=== PATIENT | female | born 1950 | race African-American/Black ===

== ENCOUNTER 2017-08-27 17:11 | Inpatient (IN) | payer MEDICARE, MEDICAID ==
[~2017-08-27] VITALS: Ht 162.6 cm; Wt 105.7 kg
[2017-08-27] VITALS (16 sets, daily range): BP systolic 53–154; BP diastolic 24–80
[2017-08-27 17:52] LABS: ABG BASE EXCESS -2.4; ABG PCO2 30.9 mmHg (35.0-45.0)
[2017-08-27] MEDS ORDERED: Lidocaine 1% MPF 10mg/ml 5ml ONE (17:56)
--- NOTE | 2017-08-27 18:33 | Emergency Room Report ---
History of Present Illness General Chief Complaint: Altered Level of Consciousness Source: Patient, Medical Record Present Illness HPI Patient presents with complaints of altered mental status Paramedics report the patient had low blood glucose at the scene and was given glucose Patient here is nonverbal does grimace in response to painful stimuli otherwise appears uncomfortable Short of breath Patient has history of liver disease and weakness History of present illness is significantly limited given the patient's presentation and mentation Allergies: Coded Allergies: No Known Allergies (Unverified , 08/27/17) Patient History Limited by: medical condition Past Medical History: see triage record Pertinent Family History: unable to obtain Reviewed Nursing Documentation: PMH: Agreed, PSxH: Agreed Review of Systems All Other Systems: limited - Other than the ones mentioned in the history of present illness all others are reviewed however they do stay limited due to the patient's mental status Physical Exam Vital Signs Date Time Temp Pulse Resp B/P (MAP) Pulse Ox O2 Delivery O2 Flow Rate FiO2 08/27/17 17:02 96.1 82 20 126/80 Non-Rebreather 08/27/17 17:11 100 15.0 Sp02 EP Interpretation: reviewed, normal General Appearance: moderate distress - appears confused Head: normocephalic, atraumatic Eyes: bilateral eye PERRL, bilateral eye scleral icterus ENT: dry mucus membranes Neck: supple, thyroid normal Respiratory: crackles - diffusely, other - tachypneic Cardiovascular #1: regular rate, rhythm Gastrointestinal: non tender, soft Musculoskeletal: other - Patient moves upper extremity towards physical stimuli otherwise does not follow commands Neurologic: responsive - to physical stimuli Skin: jaundice Lymphatic: no adenopathy Procedures Critical Care Time Critical Care Time 50 minutes for multiple re\re evaluations initial critical status Not including any procedural time Central Line Central Line : Consent: Emergent Central Line Lumen: triple Maximal Sterile Barrier Tech: yes cap, yes mask, yes sterile gown, yes sterile gloves, yes large sterile sheet, yes hand hygiene, yes chlorhexidine prep Central Line Postion: femoral (R) Anesthesia: Lidocaine cc's of anesthesia: 5 Complications: none Central Line Post Position: sutured Attempts: Other - 2 Patient Tolerated: Well Complications: None Intubation Intubation : Consent: Emergent Intubation Method: orotracheal Tube Size (cm): 7.5 Medications: Succinylcholine Breath Sounds after Intubation: equal Intubation Complications: no complications Post Intubation Xray: Yes Attempts: One Patient Tolerated: Well Complications: None Medical Decision Making Diagnostic Impression: Primary Impression: Respiratory failure Additional Impressions: Hepatic encephalopathy Septic shock ER Course Patient's presentation is extremely concerning Given the hypotension and the confusion Severe sepsis and septic shock considered Patient's lactic acid is also 6 patient has central line placed Requires airway intubation given the abnormal respirations Patient requires pressors after IV boluses antibiotics initiated Patient's ammonia level is elevated as well in line with her hepatic encephalopathy and lactulose has been ordered Patient is an extremely critical condition admitted to ICU Labs Test 08/27/17 17:16 08/27/17 18:20 Prothrombin Time 51.7 SEC (9.30-11.50) Prothromb Time International Ratio 4.9 (0.9-1.1) Activated Partial Thromboplast Time 61 SEC (23-33) Arterial Blood pH 7.440 (7.350-7.450) Arterial Blood Partial Pressure CO2 30.9 mmHg (35.0-45.0) Arterial Blood Partial Pressure O2 266.1 mmHg (75.0-100.0) Arterial Blood HCO3 20.8 mmol/L (22.0-26.0) Arterial Blood Oxygen Saturation 99.4 % (92.0-98.0) Arterial Blood Base Excess -2.4 [place] Test N/a White Blood Count 15.2 K/UL (4.8-10.8) Red Blood Count 2.66 M/UL (4.20-5.40) Hemoglobin 9.9 G/DL (12.0-16.0) Hematocrit 31.3 % (37.0-47.0) Mean Corpuscular Volume 118 FL (80-99) Mean Corpuscular Hemoglobin 37.2 PG (27.0-31.0) Mean Corpuscular Hemoglobin Concent 31.5 G/DL (32.0-36.0) Red Cell Distribution Width 15.7 % (11.6-14.8) Platelet Count 118 K/UL (150-450) Mean Platelet Volume 8.5 FL (6.5-10.1) Neutrophils (%) (Auto) % (45.0-75.0) Lymphocytes (%) (Auto) % (20.0-45.0) Monocytes (%) (Auto) % (1.0-10.0) Eosinophils (%) (Auto) % (0.0-3.0) Basophils (%) (Auto) % (0.0-2.0) Differential Total Cells Counted 100 Neutrophils % (Manual) 85 % (45-75) Lymphocytes % (Manual) 12 % (20-45) Monocytes % (Manual) 2 % (1-10) Eosinophils % (Manual) 0 % (0-3) Basophils % (Manual) 0 % (0-2) Band Neutrophils 1 % (0-8) Platelet Estimate Decreased Platelet Morphology Normal Anisocytosis 1+ Macrocytosis 1+ Sodium Level 143 MMOL/L (136-145) Potassium Level 3.9 MMOL/L (3.5-5.1) Chloride Level 105 MMOL/L (98-107) Carbon Dioxide Level 27 MMOL/L (21-32) Anion Gap 11 mmol/L (5-15) Blood Urea Nitrogen 11 mg/dL (7-18) Creatinine 2.2 MG/DL (0.55-1.30) Estimat Glomerular Filtration Rate 27.1 mL/min (>60) Glucose Level 94 MG/DL (74-106) Lactic Acid Level 6.00 mmol/L (0.66-2.22) Calcium Level 8.2 MG/DL (8.5-10.1) Total Bilirubin 2.9 MG/DL (0.2-1.0) Direct Bilirubin 2.5 MG/DL (0.0-0.3) Aspartate Amino Transf (AST/SGOT) 2389 U/L (15-37) Alanine Aminotransferase (ALT/SGPT) 775 U/L (12-78) Alkaline Phosphatase 219 U/L (46-116) Ammonia 147 umol/L (11.2-31.7) Total Creatine Kinase 44 U/L (26-308) Creatine Kinase MB 2.6 NG/ML (0.0-3.6) Creatine Kinase MB Relative Index 5.9 Troponin I 0.045 ng/mL (0.000-0.056) Pro-B-Type Natriuretic Peptide 2042 pg/mL (0-125) Total Protein 4.5 G/DL (6.4-8.2) Albumin 1.1 G/DL (3.4-5.0) Globulin 3.4 g/dL Albumin/Globulin Ratio 0.3 (1.0-2.7) Lipase 30 U/L (73-393) Rhythm Strip Diag. Results EP Interpretation: yes Rate: 77 Rhythm: NSR, no PVC's, no ectopy Chest X-Ray Diagnostic Results Chest X-Ray Diagnostic Results #1: Chest X-Ray Ordered: Yes # of Views/Limited/Complete: 1 View Indication: Chest Pain EP Interpretation: Yes Interpretation: no consolidation, no effusion, no pneumothorax Impression: No acute disease Electronically Signed by: Omar Queen DO Chest X-Ray Diagnostic Results #2: Chest X-Ray Ordered: Yes Indication: Chest Pain EP Interpretation: Yes Interpretation: no consolidation, no effusion, no pneumothorax, other - ET tube appropriately placed, mild increased congestion perihilar Impression: Other - ET tube good location Electronically Signed by: Omar Queen DO Last Vital Signs Date Time Temp Pulse Resp B/P (MAP) Pulse Ox O2 Delivery O2 Flow Rate FiO2 08/27/17 17:11 96.1 95 20 126/80 100 Non-Rebreather 15.0 Status: improved Disposition: ADMITTED INPATIENT Condition: Critical Referrals: CARLI TINOCO (PCP) OMAR QUEEN D.O. Aug 27, 2017 18:33
[2017-08-27 18:47] LABS: MEAN CORPUSCULAR HEMOGLOBIN 37.2 PG (27.0-31.0); MEAN CORPUSCULAR HGB CONC 31.5 G/DL (32.0-36.0); MEAN CORPUSCULAR VOLUME 118 FL (80-99); MEAN PLATELET VOLUME 8.5 FL (6.5-10.1); PLATELET COUNT 118 K/UL (150-450); RED BLOOD COUNT 2.66 M/UL (4.20-5.40); RED CELL DISTRIBUTION WIDTH 15.7 % (11.6-14.8); WHITE BLOOD COUNT 15.2 K/UL (4.8-10.8)
[2017-08-27 19:13] LABS: ANION GAP 11 mmol/L (5-15); CALCIUM 8.2 MG/DL (8.5-10.1); CARBON DIOXIDE 27 MMOL/L (21-32); CHLORIDE 105 MMOL/L (98-107); CREATININE 2.2 MG/DL (0.55-1.30); GLOMERULAR FILTRATION RATE 27.1 mL/min (>60); POTASSIUM 3.9 MMOL/L (3.5-5.1); SODIUM 143 MMOL/L (136-145)
[2017-08-27 19:23] LABS: ALANINE AMINOTRANSFERASE 775 U/L (12-78); ALBUMIN/GLOBULIN RATIO 0.3 (1.0-2.7); ASPARTATE AMINO TRANSFERASE 2389 U/L (15-37); CKMB 2.6 NG/ML (0.0-3.6); LIPASE 30 U/L (73-393); TOTAL PROTEIN 4.5 G/DL (6.4-8.2)
[2017-08-27 19:28] LABS: REFLEX LACTIC ACID YES OR NO YES
[2017-08-27 19:29] LABS: BILIRUBIN,DIRECT 2.5 MG/DL (0.0-0.3)
[2017-08-27 19:31] LABS: ANISOCYTOSIS 1+; BAND NEUTROPHILS % (MANUAL) 1 % (0-8); LYMPHOCYTES % (MANUAL) 12 % (20-45); NEUTROPHILS % (MANUAL) 85 % (45-75); TOTAL CELLS COUNTED 100
[2017-08-27 19:32] LABS: BASOPHILS % (MANUAL) 0 % (0-2); EOSINOPHILS % (MANUAL) 0 % (0-3); MACROCYTES 1+; PLATELET ESTIMATE DECREASED; PLATELET MORPHOLOGY NORMAL
[2017-08-27] MEDS ORDERED: DOPamine 400mg/250ml 250 ML IV SCH (19:45)
[2017-08-27] MEDS ORDERED: Succinylcholine 20mg/ml 10ml vial IV ONE (20:00)
[2017-08-27] MEDS ORDERED: NKM (20:12)
[2017-08-27] MEDS ORDERED: DOCUSATE SODIU100 MG ORAL (20:45)
[2017-08-27] MEDS ORDERED: VITAMIN D250000 UNI1 ORAL (20:45)
[2017-08-27] MEDS ORDERED: FOLIC ACID1 MG ORAL (20:45)
[2017-08-27] MEDS ORDERED: VITAMIN B-1100 MG ORAL (20:45)
[2017-08-27] MEDS ORDERED: MILK OF MA400 MG/51 ORAL (20:49)
[2017-08-27] MEDS ORDERED: ACETAMINOPHEN325 M1 ORAL (20:49)
[2017-08-27] MEDS ORDERED: PANTOPRAZOLE SO40 MG ORAL (20:49)
[2017-08-27] MEDS ORDERED: MIDODRINE HCL5 MG ORAL (20:51)
[2017-08-27 20:54] LABS: PROTHROMBIN TIME 51.7 SEC (9.30-11.50)
[2017-08-27 20:55] LABS: INR 4.9 (0.9-1.1)
[2017-08-27] MEDS ORDERED: Lactulose 200 GM in NS Irrig 1000ml 700 ML RECTAL ONE (21:00)
[2017-08-27] MEDS ORDERED: Zosyn 3.375gm/50ml Premix 50 ML IVPB ONE (22:00)
[2017-08-27 22:03] LABS: ABG BASE EXCESS -5; ABG PCO2 36.7 mmHg (35.0-45.0)
[2017-08-27] MEDS ORDERED: Miralax 17gm pkt ORAL PRN (22:30)
[2017-08-27] MEDS ORDERED: Albuterol/Ipratropium 3ml neb HHN PRN (22:30)
[2017-08-27] MEDS ORDERED: LORazepam Inj 2mg/ml 1ml IV PRN (22:30)
[2017-08-27] MEDS ORDERED: Morphine Sulfate 4mg/ml Inj IVP PRN (22:30)
[2017-08-27] MEDS ORDERED: Vancomycin 1 GM in D5W 275 ML IV SCH (23:45)
[2017-08-28] VITALS (16 sets, daily range): BP systolic 49–187; BP diastolic 21–142
[2017-08-28] MEDS ORDERED: Amikacin 500 MG in NS 110 ML IV ONE ×2
[2017-08-28] MEDS ORDERED: Levophed 4mg/4mL Inj IV ONE ×2 (00:48→04:10)
[2017-08-28] MEDS ORDERED: Vancomycin 1.5 GM/D5W 250ML IVPB SCH (01:00)
[2017-08-28] MEDS ORDERED: Ertapenem (INVanz) 1gm Inj ONE (01:01)
[2017-08-28] MEDS ORDERED: Amikacin 500mg/2mL Inj ONE (01:03)
[2017-08-28] MEDS ORDERED: Ertapenem 1 GM in NS 55 ML IV SCH (02:00)
[2017-08-28 07:18] LABS: ALANINE AMINOTRANSFERASE 617 U/L (12-78); ALBUMIN/GLOBULIN RATIO 0.3 (1.0-2.7); ANION GAP 16 mmol/L (5-15); ASPARTATE AMINO TRANSFERASE 1349 U/L (15-37); BILIRUBIN,DIRECT 2.2 MG/DL (0.0-0.3); CALCIUM 7.5 MG/DL (8.5-10.1); CARBON DIOXIDE 20 MMOL/L (21-32); CHLORIDE 106 MMOL/L (98-107); CREATININE 2.4 MG/DL (0.55-1.30); GLOMERULAR FILTRATION RATE 24.6 mL/min (>60); MEAN CORPUSCULAR HEMOGLOBIN 37.6 PG (27.0-31.0); MEAN CORPUSCULAR HGB CONC 31.4 G/DL (32.0-36.0); MEAN CORPUSCULAR VOLUME 120 FL (80-99); MEAN PLATELET VOLUME 8.8 FL (6.5-10.1); PLATELET COUNT 153 K/UL (150-450); POTASSIUM 3.7 MMOL/L (3.5-5.1); RED BLOOD COUNT 2.95 M/UL (4.20-5.40); RED CELL DISTRIBUTION WIDTH 15.9 % (11.6-14.8); SODIUM 142 MMOL/L (136-145); TOTAL PROTEIN 4.2 G/DL (6.4-8.2)
[2017-08-28] MEDS ORDERED: Lidocaine 1% MPF 10mg/ml 5ml INJ ONE (07:30)
[2017-08-28 07:56] LABS: INR 3.4 (0.9-1.1); PROTHROMBIN TIME 35.9 SEC (9.30-11.50)
[2017-08-28 08:09] LABS: REFLEX LACTIC ACID YES OR NO YES
[2017-08-28] MEDS ORDERED: Heparin 5000 units/ml inj SUBQ SCH (09:00)
[2017-08-28] MEDS ORDERED: Pantoprazole Inj IVP SCH (09:00)
[2017-08-28] MEDS ORDERED: Sodium Chloride 500ML 1,000 ML IV ONE (09:00)
--- NOTE | 2017-08-28 09:06 | Consultation ---
History of Present Illness General Date patient seen: Aug 27, 2017 Time patient seen: 20:00 Chief Complaint: Altered Level of Consciousness Reason for Consultation: ICU management Present Illness HPI 67 year old female with hx of ETOH liver disease, half-way resident, presented to ER with complaints of altered mental status and low blood glucose at the scene and was given glucose. Patient was nonverbal on presentation, does grimace in response to painful stimuli otherwise appears uncomfortable and Short of breath. Pt was hypotensive and in respiratory failure. She got intubated and started on drips and transferred to ICU. Allergies: Coded Allergies: No Known Allergies (Unverified , 08/27/17) Medication History Scheduled Docusate Sodium* (Docusate Sodium*), 100 MG ORAL TWICE A DAY, (Reported) Ergocalciferol (Vitamin D2)* (Vitamin D*), 50,000 UNIT ORAL ONCE A WEEK, ( Reported) Folic Acid* (Folic Acid*), 1 MG ORAL DAILY, (Reported) Midodrine* (Proamatine*), 5 MG ORAL THREE TIMES A DAY, (Reported) Pantoprazole* (Pantoprazole*), 40 MG ORAL DAILY, (Reported) Thiamine Hcl* (Vitamin B-1*), 100 MG ORAL DAILY, (Reported) Scheduled PRN Acetaminophen* (Acetaminophen 325MG Tablet*), 325 MG ORAL Q4H PRN for Fever/ Headache/Mild Pain, (Reported) Magnesium Hydroxide* (Milk Of Magnesia*), 30 ML ORAL DAILY PRN for Constipation, (Reported) Patient History Healthcare decision maker daughter Resuscitation status Full Code Advanced Directive on File No Past Medical/Surgical History Past Medical/Surgical History: (1) Hepatic encephalopathy Review of Systems All Other Systems: negative except mentioned in HPI Physical Exam General Appearance: WD/WN Lines, tubes and drains: peripheral HEENT: normocephalic, atraumatic Neck: non-tender, normal alignment Respiratory/Chest: chest wall non-tender, lungs clear Breasts: no masses Cardiovascular/Chest: normal peripheral pulses Abdomen: distended Genitourinary/Rectal: normal genital exam, normal rectal exam Extremities: normal range of motion, non-tender Last 24 Hour Vital Signs Date Time Temp Pulse Resp B/P (MAP) Pulse Ox O2 Delivery O2 Flow Rate FiO2 08/28/17 08:43 119 24 100 08/28/17 07:09 116 19 100 08/28/17 07:00 102 20 70/37 100 Mechanical Ventilator 100 08/28/17 07:00 60/29 08/28/17 06:55 75/49 08/28/17 06:30 105 20 80/37 100 Mechanical Ventilator 100 08/28/17 06:00 105 20 49/21 71 Mechanical Ventilator 100 08/28/17 06:00 49/21 08/28/17 05:30 102 20 63/33 71 Mechanical Ventilator 100 08/28/17 05:04 108 26 100 08/28/17 05:00 97.1 107 20 73/41 71 Mechanical Ventilator 100 08/28/17 05:00 73/41 08/28/17 04:30 97.0 105 20 82/42 Mechanical Ventilator 100 08/28/17 04:26 76/55 08/28/17 04:00 96.3 108 19 65/48 32 Mechanical Ventilator 100 08/28/17 04:00 100 08/28/17 04:00 105 08/28/17 03:31 136 26 100 08/28/17 03:30 96.5 108 19 69/46 Mechanical Ventilator 100 08/28/17 03:00 66/53 08/28/17 03:00 96.7 107 20 66/53 100 Mechanical Ventilator 100 08/28/17 02:30 97.3 105 19 84/69 Mechanical Ventilator 100 08/28/17 02:00 96.8 107 19 77/42 Mechanical Ventilator 100 08/28/17 02:00 77/42 08/28/17 01:30 96.6 112 18 59/47 Mechanical Ventilator 08/28/17 01:16 88/60 08/28/17 01:04 168 22 100 08/28/17 01:00 97.5 117 20 187/142 Mechanical Ventilator 100 08/28/17 00:15 96.2 129 20 151/100 100 Mechanical Ventilator 100 08/28/17 00:00 96.6 128 20 149/82 98 Mechanical Ventilator 100 08/28/17 00:00 129 08/28/17 00:00 100 08/27/17 23:45 128 20 154/80 98 Mechanical Ventilator 100 08/27/17 23:30 128 18 125/80 99 Mechanical Ventilator 100 08/27/17 23:15 129 16 111/53 100 Mechanical Ventilator 100 08/27/17 23:00 127 16 83/51 100 Mechanical Ventilator 100 08/27/17 22:59 126 22 100 08/27/17 22:45 96.5 126 16 88/42 100 Endotracheal Tube 100 08/27/17 22:37 127 08/27/17 22:25 96.7 128 16 95/75 100 Endotracheal Tube 3.0 100 08/27/17 22:00 128 16 95/75 100 Endotracheal Tube 100 08/27/17 21:50 87 19 100 08/27/17 21:07 112 16 78/24 100 Endotracheal Tube 100 08/27/17 21:07 78/24 08/27/17 21:00 20 08/27/17 20:52 86/61 08/27/17 20:52 111 16 86/61 100 Endotracheal Tube 100 08/27/17 20:43 108 16 96/61 100 Endotracheal Tube 100 08/27/17 20:37 59/43 08/27/17 20:21 59/43 08/27/17 20:20 95 16 59/53 100 Endotracheal Tube 100 08/27/17 20:18 89 18 100 08/27/17 20:05 87 16 77/55 100 Endotracheal Tube 100 08/27/17 20:05 77/55 08/27/17 19:55 100 08/27/17 19:00 96.7 93 20 76/57 99 Nasal Cannula 3.0 08/27/17 18:30 96.9 87 22 91/71 99 Nasal Cannula 3.0 08/27/17 18:00 96.1 92 22 53/38 100 Nasal Cannula 3.0 08/27/17 17:30 96.1 89 23 63/48 100 Nasal Cannula 3.0 08/27/17 17:11 96.1 95 20 126/80 100 Non-Rebreather 15.0 08/27/17 17:02 96.1 82 20 126/80 Non-Rebreather Laboratory Tests Test 08/27/17 17:16 08/27/17 18:20 08/27/17 19:28 08/27/17 21:54 Prothrombin Time 51.7 SEC (9.30-11.50) H Prothromb Time International Ratio 4.9 (0.9-1.1) H Activated Partial Thromboplast Time 61 SEC (23-33) H Arterial Blood pH 7.440 (7.350-7.450) 7.530 (7.350-7.450) Arterial Blood Partial Pressure CO2 30.9 mmHg (35.0-45.0) L 36.7 mmHg (35.0-45.0) Arterial Blood Partial Pressure O2 266.1 mmHg (75.0-100.0) H 231.9 mmHg (75.0-100.0) H Arterial Blood HCO3 20.8 mmol/L (22.0-26.0) L 19.9 mmol/L (22.0-26.0) L Arterial Blood Oxygen Saturation 99.4 % (92.0-98.0) H 99.3 % (92.0-98.0) H Arterial Blood Base Excess -2.4 -5 [place] Test N/a N/a White Blood Count 15.2 K/UL (4.8-10.8) H Red Blood Count 2.66 M/UL (4.20-5.40) L Hemoglobin 9.9 G/DL (12.0-16.0) L Hematocrit 31.3 % (37.0-47.0) L Mean Corpuscular Volume 118 FL (80-99) H Mean Corpuscular Hemoglobin 37.2 PG (27.0-31.0) H Mean Corpuscular Hemoglobin Concent 31.5 G/DL (32.0-36.0) L Red Cell Distribution Width 15.7 % (11.6-14.8) H Platelet Count 118 K/UL (150-450) L Mean Platelet Volume 8.5 FL (6.5-10.1) Neutrophils (%) (Auto) % (45.0-75.0) Lymphocytes (%) (Auto) % (20.0-45.0) Monocytes (%) (Auto) % (1.0-10.0) Eosinophils (%) (Auto) % (0.0-3.0) Basophils (%) (Auto) % (0.0-2.0) Differential Total Cells Counted 100 Neutrophils % (Manual) 85 % (45-75) H Lymphocytes % (Manual) 12 % (20-45) L Monocytes % (Manual) 2 % (1-10) Eosinophils % (Manual) 0 % (0-3) Basophils % (Manual) 0 % (0-2) Band Neutrophils 1 % (0-8) Platelet Estimate Decreased L Platelet Morphology Normal Anisocytosis 1+ Macrocytosis 1+ Sodium Level 143 MMOL/L (136-145) Potassium Level 3.9 MMOL/L (3.5-5.1) Chloride Level 105 MMOL/L (98-107) Carbon Dioxide Level 27 MMOL/L (21-32) Anion Gap 11 mmol/L (5-15) Blood Urea Nitrogen 11 mg/dL (7-18) Creatinine 2.2 MG/DL (0.55-1.30) H Estimat Glomerular Filtration Rate 27.1 mL/min (>60) Glucose Level 94 MG/DL (74-106) Lactic Acid Level 6.00 mmol/L (0.66-2.22) H 5.90 mmol/L (0.66-2.22) H Calcium Level 8.2 MG/DL (8.5-10.1) L Total Bilirubin 2.9 MG/DL (0.2-1.0) H Direct Bilirubin 2.5 MG/DL (0.0-0.3) H Aspartate Amino Transf (AST/SGOT) 2389 U/L (15-37) H Alanine Aminotransferase (ALT/SGPT) 775 U/L (12-78) H Alkaline Phosphatase 219 U/L (46-116) H Ammonia 147 umol/L (11.2-31.7) H Total Creatine Kinase 44 U/L (26-308) Creatine Kinase MB 2.6 NG/ML (0.0-3.6) Creatine Kinase MB Relative Index 5.9 Troponin I 0.045 ng/mL (0.000-0.056) Pro-B-Type Natriuretic Peptide 2042 pg/mL (0-125) H Total Protein 4.5 G/DL (6.4-8.2) L Albumin 1.1 G/DL (3.4-5.0) L Globulin 3.4 g/dL Albumin/Globulin Ratio 0.3 (1.0-2.7) L Lipase 30 U/L (73-393) L Test 08/28/17 05:00 08/28/17 06:00 Prothrombin Time 35.9 SEC (9.30-11.50) H Prothromb Time International Ratio 3.4 (0.9-1.1) H Activated Partial Thromboplast Time 71 SEC (23-33) H White Blood Count 17.0 K/UL (4.8-10.8) H Red Blood Count 2.95 M/UL (4.20-5.40) L Hemoglobin 11.1 G/DL (12.0-16.0) L Hematocrit 35.3 % (37.0-47.0) L Mean Corpuscular Volume 120 FL (80-99) H Mean Corpuscular Hemoglobin 37.6 PG (27.0-31.0) H Mean Corpuscular Hemoglobin Concent 31.4 G/DL (32.0-36.0) L Red Cell Distribution Width 15.9 % (11.6-14.8) H Platelet Count 153 K/UL (150-450) Mean Platelet Volume 8.8 FL (6.5-10.1) Neutrophils (%) (Auto) % (45.0-75.0) Lymphocytes (%) (Auto) % (20.0-45.0) Monocytes (%) (Auto) % (1.0-10.0) Eosinophils (%) (Auto) % (0.0-3.0) Basophils (%) (Auto) % (0.0-2.0) Neutrophils % (Manual) Pending Lymphocytes % (Manual) Pending Platelet Estimate Pending Platelet Morphology Pending Sodium Level 142 MMOL/L (136-145) Potassium Level 3.7 MMOL/L (3.5-5.1) Chloride Level 106 MMOL/L (98-107) Carbon Dioxide Level 20 MMOL/L (21-32) L Anion Gap 16 mmol/L (5-15) H Blood Urea Nitrogen 10 mg/dL (7-18) Creatinine 2.4 MG/DL (0.55-1.30) H Estimat Glomerular Filtration Rate 24.6 mL/min (>60) Glucose Level 183 MG/DL (74-106) H Lactic Acid Level 9.80 mmol/L (0.66-2.22) H Calcium Level 7.5 MG/DL (8.5-10.1) L Total Bilirubin 2.6 MG/DL (0.2-1.0) H Direct Bilirubin 2.2 MG/DL (0.0-0.3) H Aspartate Amino Transf (AST/SGOT) 1349 U/L (15-37) H Alanine Aminotransferase (ALT/SGPT) 617 U/L (12-78) H Alkaline Phosphatase 221 U/L (46-116) H Total Protein 4.2 G/DL (6.4-8.2) L Albumin 0.9 G/DL (3.4-5.0) L Globulin 3.3 g/dL Albumin/Globulin Ratio 0.3 (1.0-2.7) L Height (Feet): 5 Height (Inches): 4.00 Weight (Pounds): 233 Medications Current Medications Medications (Trade) Dose Ordered Sig/Park Route PRN Reason Start Time Stop Time Status Last Admin Dose Admin Acetaminophen (Tylenol) 650 mg Q4H PRN ORAL fever 08/27/17 22:30 09/26/17 22:29 Albuterol/ Ipratropium (Albuterol/ Ipratropium) 3 ml Q4H PRN HHN Shortness of Breath 08/27/17 22:30 09/01/17 22:29 Chlorhexidine Gluconate (Rafaela-Hex 2%) 1 applic DAILY@2000 TOPIC 08/28/17 20:00 09/27/17 19:59 Dopamine HCl/ Dextrose 250 ml @ 0 mls/hr Q24H IV 08/27/17 19:45 09/26/17 19:44 08/27/17 20:05 Lorazepam (Ativan 2mg/ml 1ml) 2 mg Q2H PRN IV For Anxiety 08/27/17 22:30 09/03/17 22:29 Morphine Sulfate (Morphine Sulfate) 4 mg Q4H PRN IVP Severe Pain (Pain Scale 7-10) 08/27/17 22:30 09/03/17 22:29 Norepinephrine Bitartrate 4 mg/ Dextrose 254 ml @ 0 mls/hr Q24H IV 08/27/17 22:30 09/26/17 22:29 08/28/17 06:55 Ondansetron HCl (Zofran) 4 mg Q6H PRN IVP Nausea & Vomiting 08/27/17 22:30 09/26/17 22:29 Pantoprazole (Protonix) 40 mg DAILY IVP 08/28/17 09:00 09/27/17 08:59 08/28/17 08:51 Polyethylene Glycol (Miralax) 17 gm DAILYPRN PRN ORAL Constipation 08/27/17 22:30 09/26/17 22:29 Propofol 100 ml @ 0 mls/hr Q24H IV 08/27/17 21:00 08/29/17 20:59 Sodium Chloride 1,000 ml @ 100 mls/hr Q10H IVLG 08/27/17 23:39 09/26/17 23:38 08/28/17 05:23 Sodium Chloride 1,000 ml @ 999 mls/hr ONCE ONCE IV 08/28/17 09:00 08/28/17 10:00 08/28/17 08:52 Vancomycin HCl (Vanco rx to dose) 1 ea DAILY PRN MISC PER PROTOCOL 08/27/17 23:15 09/26/17 23:14 Vancomycin HCl/ Dextrose 250 ml @ 125 mls/hr Q48H IVPB 08/28/17 01:00 09/02/17 00:59 08/28/17 01:17 Assessment/Plan Problem List: (1) Respiratory failure ICD Codes: J96.90 - Respiratory failure, unspecified, unspecified whether with hypoxia or hypercapnia SNOMED: 425839669 (2) Septic shock ICD Codes: A41.9 - Sepsis, unspecified organism; R65.21 - Severe sepsis with septic shock SNOMED: 44331612 (3) Acute encephalopathy ICD Codes: G93.40 - Encephalopathy, unspecified SNOMED: 8231462 (4) Hepatic encephalopathy ICD Codes: K72.90 - Hepatic failure, unspecified without coma SNOMED: 91491637 (5) Coagulopathy ICD Codes: D68.9 - Coagulation defect, unspecified SNOMED: 37101462 Respiratory: monitor respiratory rate, adjust FIO2 Cardiac: continue pressors, continue to monitor HR/BP Renal: F/U I&O, keep IV fluid Infectious Disease: check cultures, continue antibiotics Gastrointestinal: hold feedings Endocrine: monitor blood sugar, check HgA1C, continue sliding scale insulin Hematologic: transfuse if hgb<8.5, other - vitamin K and FFP Neurologic: PRN Ativan, PRN Morphine, keep patient comfortable Affect: PRN ativan Prophylaxis: Protonix Disposition: keep in ICU Notes Reviewed: scenario writer, renal Discussed with: nurses, casework supervisor GEOVANNA HARKINS Aug 28, 2017 09:06
--- NOTE | 2017-08-28 09:11 | Pulmonolgy Critical Care Note ---
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 Critical Care - Objective Last 24 Hour Vital Signs Date Time Temp Pulse Resp B/P (MAP) Pulse Ox O2 Delivery O2 Flow Rate FiO2 08/28/17 08:43 119 24 100 08/28/17 07:09 116 19 100 08/28/17 07:00 102 20 70/37 100 Mechanical Ventilator 100 08/28/17 07:00 60/29 08/28/17 06:55 75/49 08/28/17 06:30 105 20 80/37 100 Mechanical Ventilator 100 08/28/17 06:00 105 20 49/21 71 Mechanical Ventilator 100 08/28/17 06:00 49/21 08/28/17 05:30 102 20 63/33 71 Mechanical Ventilator 100 08/28/17 05:04 108 26 100 08/28/17 05:00 97.1 107 20 73/41 71 Mechanical Ventilator 100 08/28/17 05:00 73/41 08/28/17 04:30 97.0 105 20 82/42 Mechanical Ventilator 100 08/28/17 04:26 76/55 08/28/17 04:00 96.3 108 19 65/48 32 Mechanical Ventilator 100 08/28/17 04:00 100 08/28/17 04:00 105 08/28/17 03:31 136 26 100 08/28/17 03:30 96.5 108 19 69/46 Mechanical Ventilator 100 08/28/17 03:00 66/53 08/28/17 03:00 96.7 107 20 66/53 100 Mechanical Ventilator 100 08/28/17 02:30 97.3 105 19 84/69 Mechanical Ventilator 100 08/28/17 02:00 96.8 107 19 77/42 Mechanical Ventilator 100 08/28/17 02:00 77/42 08/28/17 01:30 96.6 112 18 59/47 Mechanical Ventilator 08/28/17 01:16 88/60 08/28/17 01:04 168 22 100 08/28/17 01:00 97.5 117 20 187/142 Mechanical Ventilator 100 08/28/17 00:15 96.2 129 20 151/100 100 Mechanical Ventilator 100 08/28/17 00:00 96.6 128 20 149/82 98 Mechanical Ventilator 100 08/28/17 00:00 129 08/28/17 00:00 100 08/27/17 23:45 128 20 154/80 98 Mechanical Ventilator 100 08/27/17 23:30 128 18 125/80 99 Mechanical Ventilator 100 08/27/17 23:15 129 16 111/53 100 Mechanical Ventilator 100 08/27/17 23:00 127 16 83/51 100 Mechanical Ventilator 100 08/27/17 22:59 126 22 100 08/27/17 22:45 96.5 126 16 88/42 100 Endotracheal Tube 100 08/27/17 22:37 127 08/27/17 22:25 96.7 128 16 95/75 100 Endotracheal Tube 3.0 100 08/27/17 22:00 128 16 95/75 100 Endotracheal Tube 100 08/27/17 21:50 87 19 100 08/27/17 21:07 112 16 78/24 100 Endotracheal Tube 100 08/27/17 21:07 78/24 08/27/17 21:00 20 08/27/17 20:52 86/61 08/27/17 20:52 111 16 86/61 100 Endotracheal Tube 100 08/27/17 20:43 108 16 96/61 100 Endotracheal Tube 100 08/27/17 20:37 59/43 08/27/17 20:21 59/43 08/27/17 20:20 95 16 59/53 100 Endotracheal Tube 100 08/27/17 20:18 89 18 100 08/27/17 20:05 87 16 77/55 100 Endotracheal Tube 100 08/27/17 20:05 77/55 08/27/17 19:55 100 08/27/17 19:00 96.7 93 20 76/57 99 Nasal Cannula 3.0 08/27/17 18:30 96.9 87 22 91/71 99 Nasal Cannula 3.0 08/27/17 18:00 96.1 92 22 53/38 100 Nasal Cannula 3.0 08/27/17 17:30 96.1 89 23 63/48 100 Nasal Cannula 3.0 08/27/17 17:11 96.1 95 20 126/80 100 Non-Rebreather 15.0 08/27/17 17:02 96.1 82 20 126/80 Non-Rebreather Status: obtunded Condition: critical Neck: full ROM Lungs: clear Heart: HR/BP stable, HR/BP unstable Abdomen: soft, active bowel sounds Extremities: no C/C/E Decubiti: location Accucheck: 133 Critical Care - Subjective ROS Limited/Unobtainable: Yes ICU Day: 2 Intubation Day: 2 Condition: critical EKG Rhythm: Sinus Rhythm FI02: 100 Vent Support Breath Rate: 16 Vent Support Mode: AC Vent Tidal Volume: 600 Sputum Amount: Scant PIP: 5 Fluids: NS 100 cc/hour Drips: Levophed and neosynephrien CXR: pulmonary edema ET-Tube: 7.5 ET Position: 21 Labs: Laboratory Tests Test 08/27/17 17:16 08/27/17 18:20 08/27/17 19:28 08/27/17 21:54 Prothrombin Time 51.7 SEC (9.30-11.50) H Prothromb Time International Ratio 4.9 (0.9-1.1) H Activated Partial Thromboplast Time 61 SEC (23-33) H Arterial Blood pH 7.440 (7.350-7.450) 7.530 (7.350-7.450) Arterial Blood Partial Pressure CO2 30.9 mmHg (35.0-45.0) L 36.7 mmHg (35.0-45.0) Arterial Blood Partial Pressure O2 266.1 mmHg (75.0-100.0) H 231.9 mmHg (75.0-100.0) H Arterial Blood HCO3 20.8 mmol/L (22.0-26.0) L 19.9 mmol/L (22.0-26.0) L Arterial Blood Oxygen Saturation 99.4 % (92.0-98.0) H 99.3 % (92.0-98.0) H Arterial Blood Base Excess -2.4 -5 [place] Test N/a N/a White Blood Count 15.2 K/UL (4.8-10.8) H Red Blood Count 2.66 M/UL (4.20-5.40) L Hemoglobin 9.9 G/DL (12.0-16.0) L Hematocrit 31.3 % (37.0-47.0) L Mean Corpuscular Volume 118 FL (80-99) H Mean Corpuscular Hemoglobin 37.2 PG (27.0-31.0) H Mean Corpuscular Hemoglobin Concent 31.5 G/DL (32.0-36.0) L Red Cell Distribution Width 15.7 % (11.6-14.8) H Platelet Count 118 K/UL (150-450) L Mean Platelet Volume 8.5 FL (6.5-10.1) Neutrophils (%) (Auto) % (45.0-75.0) Lymphocytes (%) (Auto) % (20.0-45.0) Monocytes (%) (Auto) % (1.0-10.0) Eosinophils (%) (Auto) % (0.0-3.0) Basophils (%) (Auto) % (0.0-2.0) Differential Total Cells Counted 100 Neutrophils % (Manual) 85 % (45-75) H Lymphocytes % (Manual) 12 % (20-45) L Monocytes % (Manual) 2 % (1-10) Eosinophils % (Manual) 0 % (0-3) Basophils % (Manual) 0 % (0-2) Band Neutrophils 1 % (0-8) Platelet Estimate Decreased L Platelet Morphology Normal Anisocytosis 1+ Macrocytosis 1+ Sodium Level 143 MMOL/L (136-145) Potassium Level 3.9 MMOL/L (3.5-5.1) Chloride Level 105 MMOL/L (98-107) Carbon Dioxide Level 27 MMOL/L (21-32) Anion Gap 11 mmol/L (5-15) Blood Urea Nitrogen 11 mg/dL (7-18) Creatinine 2.2 MG/DL (0.55-1.30) H Estimat Glomerular Filtration Rate 27.1 mL/min (>60) Glucose Level 94 MG/DL (74-106) Lactic Acid Level 6.00 mmol/L (0.66-2.22) H 5.90 mmol/L (0.66-2.22) H Calcium Level 8.2 MG/DL (8.5-10.1) L Total Bilirubin 2.9 MG/DL (0.2-1.0) H Direct Bilirubin 2.5 MG/DL (0.0-0.3) H Aspartate Amino Transf (AST/SGOT) 2389 U/L (15-37) H Alanine Aminotransferase (ALT/SGPT) 775 U/L (12-78) H Alkaline Phosphatase 219 U/L (46-116) H Ammonia 147 umol/L (11.2-31.7) H Total Creatine Kinase 44 U/L (26-308) Creatine Kinase MB 2.6 NG/ML (0.0-3.6) Creatine Kinase MB Relative Index 5.9 Troponin I 0.045 ng/mL (0.000-0.056) Pro-B-Type Natriuretic Peptide 2042 pg/mL (0-125) H Total Protein 4.5 G/DL (6.4-8.2) L Albumin 1.1 G/DL (3.4-5.0) L Globulin 3.4 g/dL Albumin/Globulin Ratio 0.3 (1.0-2.7) L Lipase 30 U/L (73-393) L Test 08/28/17 05:00 08/28/17 06:00 Prothrombin Time 35.9 SEC (9.30-11.50) H Prothromb Time International Ratio 3.4 (0.9-1.1) H Activated Partial Thromboplast Time 71 SEC (23-33) H White Blood Count 17.0 K/UL (4.8-10.8) H Red Blood Count 2.95 M/UL (4.20-5.40) L Hemoglobin 11.1 G/DL (12.0-16.0) L Hematocrit 35.3 % (37.0-47.0) L Mean Corpuscular Volume 120 FL (80-99) H Mean Corpuscular Hemoglobin 37.6 PG (27.0-31.0) H Mean Corpuscular Hemoglobin Concent 31.4 G/DL (32.0-36.0) L Red Cell Distribution Width 15.9 % (11.6-14.8) H Platelet Count 153 K/UL (150-450) Mean Platelet Volume 8.8 FL (6.5-10.1) Neutrophils (%) (Auto) % (45.0-75.0) Lymphocytes (%) (Auto) % (20.0-45.0) Monocytes (%) (Auto) % (1.0-10.0) Eosinophils (%) (Auto) % (0.0-3.0) Basophils (%) (Auto) % (0.0-2.0) Neutrophils % (Manual) Pending Lymphocytes % (Manual) Pending Platelet Estimate Pending Platelet Morphology Pending Sodium Level 142 MMOL/L (136-145) Potassium Level 3.7 MMOL/L (3.5-5.1) Chloride Level 106 MMOL/L (98-107) Carbon Dioxide Level 20 MMOL/L (21-32) L Anion Gap 16 mmol/L (5-15) H Blood Urea Nitrogen 10 mg/dL (7-18) Creatinine 2.4 MG/DL (0.55-1.30) H Estimat Glomerular Filtration Rate 24.6 mL/min (>60) Glucose Level 183 MG/DL (74-106) H Lactic Acid Level 9.80 mmol/L (0.66-2.22) H Calcium Level 7.5 MG/DL (8.5-10.1) L Total Bilirubin 2.6 MG/DL (0.2-1.0) H Direct Bilirubin 2.2 MG/DL (0.0-0.3) H Aspartate Amino Transf (AST/SGOT) 1349 U/L (15-37) H Alanine Aminotransferase (ALT/SGPT) 617 U/L (12-78) H Alkaline Phosphatase 221 U/L (46-116) H Total Protein 4.2 G/DL (6.4-8.2) L Albumin 0.9 G/DL (3.4-5.0) L Globulin 3.3 g/dL Albumin/Globulin Ratio 0.3 (1.0-2.7) L GEOVANNA HARKINS Aug 28, 2017 09:11
[2017-08-28 09:14] LABS: ABG ALLEN TEST POSITIVE; ABG BASE EXCESS -12.7; ABG PCO2 24.8 mmHg (35.0-45.0)
--- NOTE | 2017-08-28 09:32 | Diagnostic Imaging Report ---
Indication: Status post intubation Comparison: 08/27/2017 chest x-ray at 1726 hrs. Findings: Single view of the chest is obtained at 2006 hrs.. there's been interval placement of endotracheal tube which is in good position approximately 3.5 cm above the mickie. Cardiac size is normal. Pulmonary vasculature prominence consistent with congestive changes are again noted and appear slightly worse from the prior exam. No pleural effusions. Surgical clip is seen in the upper abdomen. Impression: Interval placement of endotracheal tube in good position. Slight interval worsening of bilateral congestive changes.
--- NOTE | 2017-08-28 09:34 | Emergency Room Report ---
History of Present Illness General Chief Complaint: Altered Level of Consciousness Source: Family Member Present Illness Allergies: Coded Allergies: No Known Allergies (Unverified , 08/27/17) Patient History Now: No Nursing Documentation-[facility] Past Medical History Deferred: Pt Cognitively Impaired Past Medical History: No History, Except For Hx Cardiac Problems: No Hx Asthma: No Hx COPD: Yes - early stage,inhaler only Hx Cancer: No Hx Gastrointestinal Problems: No Hx Neurological Problems: No Physical Exam Vital Signs Date Time Temp Pulse Resp B/P (MAP) Pulse Ox O2 Delivery O2 Flow Rate FiO2 08/27/17 17:02 96.1 82 20 126/80 Non-Rebreather 08/27/17 17:11 100 15.0 08/27/17 19:55 100 Procedures CPR/Code Blue CPR/Code Blue Narrative 67-year-old female status post cardiac arrest About called to the ICU, CPR ongoing for about 2 minutes Patient was already intubated, being bagged Initial rhythm was bradycardia, then PEA Patient received epi x3 One amp bicarbonate Patient was in pulseless V. tach Shocked at 200 J 300 mg amiodarone given CPR continued ROSC achieved after 12 minutes Normal sinus rhythm Total CPR time: 12 minutes Medical Decision Making Diagnostic Impression: Primary Impression: Respiratory failure Additional Impressions: Septic shock Hepatic encephalopathy Last Vital Signs Date Time Temp Pulse Resp B/P (MAP) Pulse Ox O2 Delivery O2 Flow Rate FiO2 08/28/17 08:43 119 24 100 08/28/17 07:00 70/37 100 Mechanical Ventilator 08/28/17 05:00 97.1 08/27/17 22:25 3.0 Disposition: ADMITTED INPATIENT Condition: Critical Referrals: CARLI TINOCO (PCP) Ankit Sanchez M.D. Aug 28, 2017 09:34
[2017-08-28] MEDS ORDERED: Phytonadione 10 MG in D5W 55 ML IVPB ONE (10:00)
[2017-08-28] MEDS ORDERED: NS 275ml ONE (10:04)
[2017-08-28] MEDS ORDERED: Amiodarone 150mg/ml 3ml Amp ONE (10:04)
[2017-08-28] MEDS ORDERED: D5 1/2NS 1000ml IV ONE (10:04)
[2017-08-28] MEDS ORDERED: Sodium Bicarbonate 50ml Carp ONE (10:04)
[2017-08-28] MEDS ORDERED: Tubing IV Secondary IV ONE (10:04)
[2017-08-28] MEDS ORDERED: D5W 275ml ONE (10:04)
--- NOTE | 2017-08-28 10:04 | Diagnostic Imaging Report ---
Indication: Shortness of breath Comparison: None Findings: Single chest shows normal cardiac size. Bilateral pulmonary vasculature prominence is noted consistent with bilateral congestive changes. There is left retrocardiac opacity with obscuration of the left hemidiaphragm indicating left basilar atelectasis/infiltrate and/or pleural effusion. Small bilateral pleural effusions are suspected. Impression: Bilateral congestive changes with suspected bilateral small pleural effusions.
[2017-08-28 10:19] LABS: ANISOCYTOSIS 1+; BAND NEUTROPHILS % (MANUAL) 0 % (0-8); BASOPHILS % (MANUAL) 0 % (0-2); EOSINOPHILS % (MANUAL) 0 % (0-3); HYPOCHROMASIA 1+; LYMPHOCYTES % (MANUAL) 11 % (20-45); MACROCYTES 3+; NEUTROPHILS % (MANUAL) 82 % (45-75); PLATELET ESTIMATE ADEQUATE; PLATELET MORPHOLOGY NORMAL; TOTAL CELLS COUNTED 100
[2017-08-28] MEDS ORDERED: Phenylephrine 50 MG in D5W 245 ML IV SCH (11:00)
--- NOTE | 2017-08-28 11:03 | Diagnostic Imaging Report ---
Indication: Shortness of breath Comparison: Chest one view 08/27/2013 Findings: Single view of the chest has been obtained. Cardiac size is normal. Pulmonary vasculature prominence consistent with congestive changes are again noted and appear slightly unchanged from the prior exam. No pleural effusions. Endotracheal tube is in stable and satisfactory position. Surgical clip is seen in the upper abdomen. Impression: No significant change from prior exam one day earlier.
[2017-08-28] MEDS ORDERED: Amikacin Rx to dose MISC PRN (12:15)
[2017-08-28] MEDS ORDERED: Dyna-Hex 2% Top Sol 2oz TOPIC SCH (20:00)
--- NOTE | 2017-08-28 20:45 | History and Physical Report ---
DATE OF ADMISSION: 08/27/2017 TIME SEEN: At 9 a.m. CONSULTANTS: 1. Larry Carter M.D. 2. Annelise Osorio M.D. 3. John Cueto M.D. CHIEF COMPLAINT: Respiratory failure, septic shock. BRIEF HISTORY: This is a 67-year-old female from [facility], who presents with increased lethargy, shortness of breath, and weakness. She presents to [facility] where she went into respiratory failure, was intubated, and admitted to ICU. Currently intubated, sedated, lethargic, in ICU, nonverbal. PAST MEDICAL HISTORY: Includes hepatic encephalopathy. We will obtain her history further. PAST SURGICAL HISTORY: Unknown. MEDICATIONS: Include Protonix, IV fluid, Levophed, amikacin, ertapenem, vancomycin, albuterol, Tylenol, morphine, MiraLAX, Zofran, norepinephrine, and Zosyn. ALLERGIES: Denied. SOCIAL HISTORY: No smoking. No alcohol. No intravenous drug use. FAMILY HISTORY: Noncontributory. REVIEW OF SYSTEMS: Unavailable. PHYSICAL EXAMINATION: GENERAL: Lethargic in bed, nonverbal. VITAL SIGNS: Temperature is not given, pulse 119, respirations 20, and blood pressure was down to 70/37. CARDIOVASCULAR: No murmur. LUNGS: Poor air exchange. ABDOMEN: Bowel sounds positive. Nontender, nondistended. EXTREMITIES: No cyanosis or clubbing. She has 1+ edema. NEUROLOGIC: intubated, sedated. LABORATORY DATA: Laboratories at this time show white count 17, hemoglobin and hematocrit 11/35, and platelets 153,000. BMP show BUN , creatinine 2.4, glucose 183, and CO2 20. INR 3.4, PTT 71. ASSESSMENT: 1. Respiratory failure. 2. Septic shock. 3. Hepatic encephalopathy. 4. Anemia. 5. Renal failure. PLAN: 1. Trend troponin. 2. Antibiotics per infectious disease. 3. Nephrology followup. 4. Dietary followup. 5. Blood pressure control. 6. CBC and BMP in the morning. 7. Dr. Carter, Dr. Osorio, Dr. Cueto, Dr. Gilliam, Dr. Parsons to consult. Isaac Pang D.O. DR: JM JOB#: [id number] CC:
--- NOTE | 2017-08-29 08:32 | Discharge Summary ---
Discharge Summary Hospital Course Date of Admission Aug 27, 2017 at 17:51 Date of Discharge Aug 28, 2017 at 10:05 Admitting Diagnosis Encephalopathy EMILY Zapien is a 67 year old female who was admitted on Aug 27, 2017 at 17: 51 for Encephalopathy Hospital Course summary #[id number] Discharge Discharge Disposition Patient Discharge Diagnoses: Discharge Instructions Discharge Instructions Special Instructions I have been assigned to complete a D/C Summary on this account. I was not involved in the patient management Delilah Soto NP (Vanchtein) Aug 29, 2017 08:32
--- NOTE | 2017-08-29 22:02 | Discharge Summary 2 SIG ---
SUMMARY DATE OF ADMISSION: 08/27/2017 DATE OF EXPIRATION: 08/28/2017 REASON FOR ADMISSION: 67-year-old female with history of COPD, liver disease, alcohol abuse, was brought to emergency room with altered mental status. According to paramedics, she had a low blood glucose at the scene and was given one ampule of dextrose. The patient was nonverbal and unable to provide any information. Upon presentation, the patient was hypoxemic and hypotensive. She required emergency oral intubation. Lactic acid - 6.0. WBC-15.2. The patient was hypotensive and tachycardic with blood pressure 63/48 and dropping down to 53/38. The patient was tachypneic. The patient was started on septic protocol. IV fluid bolus administered. Blood pressure did not respond to fluid challenge. The patient was started on pressors. The patient was pancultured and started on empiric antibiotics. Ammonia -147. INR - 4.9. BUN -11 and creatinine - 2.2. Total bilirubin -2.9. Direct bilirubin -2.5. AST- 2389 and ALT -775. Troponin negative. Pro BNP -2042. Chest x-ray initially demonstrated bilateral congestive changes with suspected bilateral small pleural effusion. Chest x-ray after intubation revealed placement of endotracheal tube in a good position and slight worsening of bilateral congestive changes. The patient was admitted with diagnosis of acute hepatic encephalopathy, respiratory failure, and septic shock. Patient was transferred to ICU for further management. HOSPITAL COURSE: The patient was admitted to ICU. Cardiology, Pulmonology and Infectious Diseases consults were requested. Flexographic Press Set Up Operator followed closely. Ventilator support provided. Pulmonary toilet provided. Pressors titrated to keep systolic blood pressure above 90. The patient was on empiric antibiotic. The patient was started on lactulose for hepatic encephalopathy. Liver enzymes were closely monitored. Next day, LFTs slowly trending down, although still high: AST -1349, ALT- 617. Lactic acid up to 9.8. WBC up to 17. Chest x-ray that morning revealed no significant changes from prior CXR. On 08/28/2017 at 9:15, Isra Aguillon was called. Initially resuscitation efforts led to return of spontaneous circulation. However, at 9:55, the patient coded again and unfortunately despite resuscitative efforts, was pronounced at 10:05. Cause of - cardiopulmonary arrest. FINAL DIAGNOSES: 1. Status post cardiopulmonary arrest. 2. Sepsis with septic shock. 3. Acute respiratory failure requiring intubation. 4. Acute hepatic encephalopathy. 5. Hypoglycemia. 6. Coagulopathy( due to end stage liver disease). 7. Acute and chronic renal failure. 8. Anemia. Isaac Pang D.O. I have been assigned to dictate discharge summary on this account and I was not involved in the patient's management. Delilah PelletierJewish Memorial Hospitaltracy N.PCipriano DR: Efrain JOB#: [id number] CC: JOHN
--- NOTE | 2017-09-04 15:54 | Cardiology Report ---
APPROVED REPORT EKG Measurement Heart [id number] Normal sinus rhythm Low voltage QRS Nonspecific T wave abnormality Abnormal ECG
== END 2017-08-28 10:05 | disposition expired | DRG 871 ==
LOC: EDBD 17:11 → EMR 17:50 → ICU 17:51 → EDBEDREQ 18:08 → EDBEDREQSVC 18:17 → EDBEDREQ 18:21
PROC: 06HM33Z Insertion of Infusion Device into Right Femoral Vein, Percutaneous Approach (ICD-10-PCS; principal; 2017-08-27)
PROC: 0BH17EZ Insertion of Endotracheal Airway into Trachea, Via Natural or Artificial Opening (ICD-10-PCS; principal; 2017-08-27)
PROC: 5A1935Z Respiratory Ventilation, Less than 24 Consecutive Hours (ICD-10-PCS; principal; 2017-08-27)
DX: A41.9 Sepsis, unspecified organism (principal); R65.21 Severe sepsis with septic shock; K72.00 Acute and subacute hepatic failure without coma; J96.01 Acute respiratory failure with hypoxia; N17.9 Acute kidney failure, unspecified; D68.4 Acquired coagulation factor deficiency; J44.9 Chronic obstructive pulmonary disease, unspecified; E16.2 Hypoglycemia, unspecified; D64.9 Anemia, unspecified
CPT/HCPCS: 36415; 36600; 71010; 80053; 82140; 82248; 82550; 82553; 82803; 82962; 83605; 83690; 83880; 84484; 85007; 85025; 85610; 85730; 87040; 87081; 92950; 93005; 94002; 94003; 99291; J0171; J2370